=== PATIENT | female | born 1965 | race Caucasian/White ===

== ENCOUNTER 2021-11-06 14:50 | Emergency (ER) | payer OTHER ==
[2021-11-06 15:10] VITALS: BP 133/88; PULSE 78
== END 2021-11-06 17:06 | disposition home or self-care (01) ==
LOC: JD.ED 14:50
DX: M79.604 Pain in right leg (principal); Z79.899 Other long term (current) drug therapy; Z88.8 Allergy status to other drugs, medicaments and biological substances
CPT/HCPCS: 36415; 80053; 83735; 85025; 93971-26-RT; 93971-RT; 99284; 99284-25

== ENCOUNTER 2022-06-26 16:57 | Emergency (ER) | payer OTHER ==
[2022-06-26] MEDS ORDERED: Sodium Chloride 0.9% 10 ML Syringe FLUSH PRN (17:25)
[2022-06-26] MEDS ORDERED: Potassium Chloride 20 MEQ Tab.ER PO ONE (19:28)
[2022-06-26 20:15] VITALS: BP 154/94; PULSE 87
== END 2022-06-26 20:20 | disposition home or self-care (01) ==
LOC: JD.ED 16:57
DX: R09.1 Pleurisy (principal); E78.00 Pure hypercholesterolemia, unspecified; Z72.0 Tobacco use; Z79.01 Long term (current) use of anticoagulants; Z88.5 Allergy status to narcotic agent; Z88.8 Allergy status to other drugs, medicaments and biological substances; Z79.02 Long term (current) use of antithrombotics/antiplatelets; Z79.899 Other long term (current) drug therapy
CPT/HCPCS: 36415; 71045; 80053; 83735; 83880; 84484; 85025; 85379; 85610; 85730; 93005; 99285; A9270; J3490